=== PATIENT | female | born 1990 | race Caucasian/White ===

== ENCOUNTER 2017-07-10 19:08 | Emergency (ER) | payer OTHER, MEDICAID ==
[~2017-07-10] VITALS: Ht 165.1 cm; Wt 67.1 kg
[~2017-07-10 19:08] MED LIST: AMOXICILLIN875 MG PO; NOHOMEMEDICATIONS; ZOFRAN ODT4 MG PO
[2017-07-10] MEDS ORDERED: ZOFRAN ODT4 MG (19:20)
[2017-07-10 19:48] LABS: URINE BLOOD 3+ (Negative); URINE CLARITY CLOUDY; URINE COLOR YELLOW; URINE GLUCOSE-RANDOM NEGATIVE (Negative); URINE KETONES 1+ (Negative); URINE PROTEIN 2+ (Negative); URINE SPECIFIC GRAVITY 1.025 (1.005-1.030); URINE UROBILINOGEN 0.2 E.U./dl (0.2-1.0)
[2017-07-10 19:56] LABS: ICTOTEST (BILI CONFIRMATORY) Negative (Negative); URINE BILIRUBIN 1+ (Negative); URINE LEUKOCYTES-REFLEX 2+ (Negative); URINE NITRITE-REFLEX POSITIVE (Negative)
[2017-07-10 19:58] LABS: HEMATOCRIT 39.4 % (37.0-47.0); HEMOGLOBIN 13.4 gm/dL (12.0-15.0); MCH 30.5 pg (26.0-34.0); MCV 89.9 fL (80.0-100.0); MPV 7.6 fl. (7.2-11.1); NUCLEATED RBCS 0 /100WBC; PLATELET COUNT* 219 thou/uL (150-400); RBC 4.38 mil/uL (4.20-5.00); RDW-CV 12.5 % (10.5-14.5); WBC 15.5 thou/uL (4.0-11.0)
[2017-07-10 20:01] LABS: MUCUS >6 Heavy strn/LPF (None Seen); SQUAMOUS >10 Many /LPF (0-3); URINE WBC-REFLEX >25 Many /HPF (0-5)
[2017-07-10 20:02] LABS: CASTS None Seen /LPF (None Seen); CRYSTALS None Seen /LPF (None Seen); URINE RBC 3-10 Few /HPF (0-2)
[2017-07-10 20:07] LABS: CALCIUM 8.8 mg/dL (8.5-10.1); CREATININE 0.9 mg/dL (0.6-1.3); POTASSIUM 3.6 mmol/L (3.5-5.1)
[2017-07-10 20:12] LABS: ALBUMIN 3.9 g/dL (3.4-5.0); TOTAL BILIRUBIN 1.1 mg/dL (<0.1-1.0)
[2017-07-10 20:25] LABS: ABSOLUTE LYMPHOCYTES 0.9 thou/uL (0.8-5.3); ABSOLUTE MONOCYTES 1.4 thou/uL (0.0-1.2); ABSOLUTE NEUTROPHILS 13.2 thou/uL (1.6-8.1); PLATELET ESTIMATE ADEQUATE
[2017-07-10] MEDS ORDERED: NORCO 7.5-3251 EACH PO (20:30)
[2017-07-10] MEDS ORDERED: MACROBID 100 M100 M1 PO (20:56)
[2017-07-10 21:37] VITALS: BP 120/70
== END 2017-07-10 21:40 | disposition home or self-care (01) ==
LOC: M.ERS 19:08
PROVIDERS: Physician Assistant
DX: N39.0 Urinary tract infection, site not specified (principal); G43.909 Migraine, unspecified, not intractable, without status migrainosus; F17.210 Nicotine dependence, cigarettes, uncomplicated

== ENCOUNTER 2017-12-05 18:57 | Emergency (ER) | payer OTHER, MEDICAID ==
[~2017-12-05] VITALS: Ht 165.1 cm; Wt 69.8 kg
[~2017-12-05 18:57] MED LIST changes: +MACROBID 100 M100 M1 PO; +NORCO 7.5-3251 EACH PO; +ZOFRAN ODT4 MG
[2017-12-05 19:20] LABS: URINE BILIRUBIN NEGATIVE (Negative); URINE BLOOD 2+ (Negative); URINE CLARITY CLEAR; URINE COLOR YELLOW; URINE GLUCOSE-RANDOM NEGATIVE (Negative); URINE KETONES NEGATIVE (Negative); URINE LEUKOCYTES-REFLEX NEGATIVE (Negative); URINE NITRITE-REFLEX NEGATIVE (Negative); URINE PROTEIN NEGATIVE (Negative); URINE UROBILINOGEN 0.2 E.U./dl (0.2-1.0)
[2017-12-05 19:31] LABS: CASTS None Seen /LPF (None Seen); CRYSTALS None Seen /LPF (None Seen); MUCUS 0-3 Light strn/LPF (None Seen); SQUAMOUS >10 Many /LPF (0-3)
[2017-12-05 19:32] LABS: URINE RBC 3-10 Few /HPF (0-2); URINE WBC-REFLEX 0-5 Rare /HPF (0-5)
[2017-12-05 20:05] LABS: ABSOLUTE EOSINOPHILS 0.1 thou/uL (0.0-0.7); ABSOLUTE LYMPHOCYTES 1.6 thou/uL (0.8-5.3); ABSOLUTE MONOCYTES 0.6 thou/uL (0.0-1.2); ABSOLUTE NEUTROPHILS 4.7 thou/uL (1.6-8.1); BASOPHILS 0.4 %; EOSINOPHILS 1.4 %; HEMOGLOBIN 14.2 gm/dL (12.0-15.0); LYMPHOCYTES 22.9 %; MCH 30.7 pg (26.0-34.0); MCHC 33.9 g/dL (28.0-37.0); MCV 90.5 fL (80.0-100.0); MONOCYTES 8.3 %; NUCLEATED RBCS 0 /100WBC; PLATELET COUNT* 201 thou/uL (150-400); RBC 4.64 mil/uL (4.20-5.00); RDW-CV 13.1 % (10.5-14.5)
[2017-12-05] MEDS ORDERED: PYRIDIUM200 MG PO (20:08)
[2017-12-05] MEDS ORDERED: KEFLEX500 M1 PO (20:08)
[2017-12-05 20:09] LABS: CALCIUM 8.4 mg/dL (8.5-10.1); CREATININE 0.6 mg/dL (0.6-1.3); POTASSIUM 3.5 mmol/L (3.5-5.1)
[2017-12-05 20:14] LABS: ALBUMIN 3.9 g/dL (3.4-5.0); TOTAL BILIRUBIN 0.6 mg/dL (<0.1-1.0); TOTAL PROTEIN 7.3 g/dL (6.4-8.2)
[2017-12-05 20:38] VITALS: BP 120/64
== END 2017-12-05 20:39 | disposition home or self-care (01) ==
LOC: M.ERS 18:57
PROVIDERS: Nurse Practitioner Family; Personal Emergency Response Attendant
DX: N39.0 Urinary tract infection, site not specified (principal); G43.909 Migraine, unspecified, not intractable, without status migrainosus